=== PATIENT | female | born 1960 | race African-American/Black ===

== ENCOUNTER 2018-07-01 11:40 | Inpatient (IN) | payer MEDICAID ==
[~2018-07-01] VITALS: Ht 157.5 cm; Wt 49.0 kg
--- NOTE | ~2018-07-01 | OP ---
PATIENT NAME: CHRISTY SHAVER MEDICAL RECORD: [id number] :62 LOCATION:D.M2 D.2113 ADMISSION DATE:07/01/18 SURGEON: DERIK NAIDU MD DATE OF OPERATION: 07/02/2018 PREOPERATIVE DIAGNOSES: 1. Clotted left upper extremity AV graft. 2. End-stage renal disease. 3. Hypertension. POSTOPERATIVE DIAGNOSES: 1. Clotted left upper extremity AV graft. 2. End-stage renal disease. 3. Hypertension. PROCEDURES: 1. Attempted left upper extremity AV graft, mechanical thrombectomy. 2. Left upper extremity AV graft fistulogram. 3. Right IJ HemoSplit catheter placement 23 cm. 4. Fluoroscopic interpretation. SURGEON: Derik Naidu MD REPORT OF PROCEDURE: The patient's left upper extremity was prepped and draped in sterile fashion. The patient had a couple of sutures present from previous attempted thrombectomy. When I took these off, there was some bleeding from the most inferior aspect. I went ahead and just opened up the graft over this. The graft was noted to be very pseudoaneurysmal at this point. There was minimal flow coming through. I was able to push through some clot and found an opening in the graft. I attempted to run 4- and 5-Vincentian Ricki catheters proximally and distally and met a lot of resistance. I eventually made another incision on the more anterior aspect of the arm, which correlated with the afferent limb of the graft. I was able to get around the graft at this point. Vessel loops were placed proximally and distally and a small opening was made. We pushed out some clot and then ran the 4 and 5 Ricki catheters proximally and distally. When we did this, there was pulsatile blood flow from the afferent limb. We clamped off the vessel and gave the patient 5000 units of heparin IV. I went back to the original opening and attempted to open up the efferent limb of the vessel to improve the outflow. I was never able to pass the 4 and 5 Ricki. I eventually tried passing a 0.035 Glidewire without success, then inserted a 5-Vincentian sheath and performed a fistulogram on the efferent limb of the graft and there was absolutely no flow coming out of the pseudoaneurysm. At this point, I discontinued any further attempts to declot the graft. The patient already had multiple stents placed throughout the graft. I ended up closing up the 2 openings using interrupted 6-0 Prolenes. We then closed the skin up over top of this using running 5-0 Monocryl. At this point, we prepped the patient's right neck using ultrasound guidance. A needle was used to cannulate the right internal jugular vein and a guidewire was advanced. There was some obstruction present, but we were able to eventually pass an 0.035 Glidewire through. We then made an incision on the patient's right lateral chest and tunneled the catheter between this and the wire exit site. The multiple dilators were placed over the wire under fluoroscopic guidance followed by the final dilator trocar device. The wire and dilator were then removed and the catheter tip was advanced through the trocar. The trocar was then removed and the catheter was backed up until the tips rested at the right atrial superior vena caval OPERATIVE REPORT [id number] [facility]. The catheter aspirated nonpulsatile dark blood and flushed easily with heparinized saline. This was sutured into place with 2-0 Prolenes and the skin incisions were closed with subcutaneous 5-0 Monocryl. COMPLICATIONS: None. CONDITION: Stable. ANESTHESIA: General endotracheal. BLOOD LOSS: 50 mL. TRANSINT:[id number] Voice Confirmation ID: [id number] DOCUMENT ID: [id number] DERIK NAIDU MD at 1714 CC: ADIN PHAM MD [id number] DICTATION DATE: 07/02/[address] RADIO TECHNICIAN: 07/02/18 1210 DIS IN 07/03/18 [facility] [address] [place] [address]
--- NOTE | ~2018-07-01 | HP ---
PATIENT: CHRISTY SHAVER MEDICAL RECORD: [id number] ACCOUNT: [id number] LOCATION:D. D.2113 : 62 ADMISSION DATE: 07/01/18 PCP: MALLORY SANTANA MD HISTORY AND PHYSICAL EXAMINATION HISTORY OF PRESENT ILLNESS: This is a nice 57-year-old patient with ESRD that has a clotted left upper thumb pull graft. Unfortunately, her graft clotted and we were unable to pass a wire in the procedure center to perform mechanical thrombectomy. REVIEW OF SYSTEMS: No nausea, vomiting, diarrhea, chest pain, some pain in her arm. Otherwise, all review of systems are negative. PAST MEDICAL HISTORY: 1. ESRD, on dialysis since December. 2. Hypertension, very elevated. 3. Intellectual disability: 4. Renal cell carcinoma with previous right nephrectomy in 2014. 5. Anemia of renal disease. 6. Secondary hyperparathyroidism. 7. Chronic pain. 8. Insomnia. 9. Emphysema with history of tobacco. 10. GERD. 11. Anxiety. 12. Hyperlipidemia. PAST SURGICAL HISTORY: Nephrectomy on the right in 2014, left upper loop AV graft thumb pull, runs lateral to medial. FAMILY HISTORY: Uncle was on dialysis. Two minimally functional brother. SOCIAL HISTORY: Resides in [facility] in [place], [place]. Uses smokeless tobacco, but has had used recreational drugs and tobacco. ALLERGIES: MINOXIDIL. MEDICATION LIST: We are obtaining from her correction. PHYSICAL EXAMINATION: VITAL SIGNS: She is 210/166, 72 heart rate, 18 respiratory rate. GENERAL: She is alert, but not oriented. HEENT: Grossly clear. CHEST: Regular rhythm. S1 and S2. Left upper clotted graft with multiple pseudoaneurysms, very firm on exam. Lungs are grossly clear except for mild decreased breath sounds. ABDOMEN: Nontender in all 4 quadrants. EXTREMITIES: +2 brachial pulses even and bilateral. SKIN: No urticarial rash. LABORATORY DATA: Lab will be sent. ASSESSMENT AND PLAN: 1. Clotted arteriovenous graft. Her last dialysis was last week. She will need a stat BMP, CBC and INR. HISTORY AND PHYSICAL [id number] CHRISTY SHAVER 2. Clotted arteriovenous graft. This graft is old and does have stents. There is a fracture and stent in the arterial limb. We were unable to pass the wire out of the pseudoaneurysms in the venous limb through the venous anastomosis, it was likely very stenotic. As mentioned, the clots were very firm as well and will likely need AngioJet and surgical mechanical thrombectomy. 3. Anemia of chronic kidney disease. We will check her hematocrit. 4. Chronic obstructive pulmonary disease with history of tobacco use. 5. Anxiety. 6. Hyperlipidemia. 7. Gastroesophageal reflux disease. 8. Hyperphosphatemia. 9. Intellectual disability. 10. Right renal cell carcinoma back in 2015. PLAN: Please see orders. TRANSINT:[id number] Voice Confirmation ID: [id number] DOCUMENT ID: [id number] ADIN PHAM MD at 0702 CC: [id number] DICTATION DATE: 07/01/18 1050 TACKING STITCH REMOVER: 07/01/18 1226 ADM IN [place] [id number] [place] [id number]
[~2018-07-01 11:40] MED LIST: ASPIRIN81 MG PO; ATIVAN0.5 MG PO; BENADRYL25 MG PO; CARDURA2 MG PO; CATAPRES-T1 PATCH.WK TD; CATAPRES0.1 MG PO; COLACE100 MG PO; HYDRALAZINE HC100 MG PO; HYDROCODON-ACE1 EAC9 PO; NIFEDIPINE ER90 MG PO; PERISOL437 ML MM; PHOSLO667 MG PO; PROVENTIL/2.5 MG/3 M INH; REMERON30 MG PO; RENAGEL800 MG PO; SENSIPAR30 MG PO; TEMAZEPAM30 MG PO; TOPROL XL200 MG PO; ZOFRAN4 MG PO
[2018-07-01 12:40] VITALS: BP 228/112; BMI 19.8
[2018-07-01 13:44] LABS: INR 1.26 (0.85-1.17); PROTIME 15.3 SECONDS (11.6-15.0)
[2018-07-01 13:48] LABS: ANION GAP 21.6 mmol/L (8-16); CALCIUM 8.8 mg/dL (8.5-10.1); CARBON DIOXIDE 19.4 mmol/L (21.0-32.0); CREATININE - SERUM 14.2 mg/dL (0.6-1.3)
[2018-07-01 13:54] LABS: HEMATOCRIT 34.6 % (36.0-48.0); HEMOGLOBIN 11.3 g/dL (12-16); MCH 23.8 pg (26.0-34.0); MCHC 32.7 g/dL (31.0-37.0); RBC 4.74 10x6/uL (4.00-5.40); RDW 15.3 % (11.5-14.5); WBC 6.3 10x3/uL (4.8-10.8)
[2018-07-01 14:00] LABS: PLATELET COUNT 114 10x3/uL (130-400)
[2018-07-01 15:15] LABS: EOSINOPHILS 3 % (0-7); LYMPHOCYTES 52 % (15-50); MONOCYTES 3 % (2-11); NEUTROPHILS 42 % (40-80); PLATELET ESTIMATE DECREASED
[2018-07-01 15:56] VITALS: BP 214/91
[2018-07-01 16:35] VITALS: BP 160/94
[2018-07-01 20:00] VITALS: BP 183/94
[2018-07-02 04:00] VITALS: BP 209/99
[2018-07-02 06:07] LABS: BASOPHILS 0.9 % (0-2); HEMATOCRIT 31.2 % (36.0-48.0); HEMOGLOBIN 10.2 g/dL (12-16); IMMATURE GRANULOCYTES 0.2 % (0-5); LYMPHOCYTES 28.6 % (15-50); MCH 23.7 pg (26.0-34.0); MCHC 32.7 g/dL (31.0-37.0); MCV 72.4 fL (80.0-100.0); MONOCYTES 21.3 % (2-11); RBC 4.31 10x6/uL (4.00-5.40); RDW 14.9 % (11.5-14.5)
[2018-07-02 06:22] LABS: ANION GAP 22.4 mmol/L (8-16); CALCIUM 8.1 mg/dL (8.5-10.1); CARBON DIOXIDE 20.3 mmol/L (21.0-32.0); CREATININE - SERUM 15.1 mg/dL (0.6-1.3); PLATELET COUNT 141 10x3/uL (130-400); WBC 4.6 10x3/uL (4.8-10.8)
[2018-07-02 06:25] LABS: POTASSIUM - SERUM 4.7 mmol/L (3.5-5.1)
[2018-07-02 06:27] LABS: INR 1.28 (0.85-1.17); PROTIME 15.5 SECONDS (11.6-15.0)
[2018-07-02 07:57] VITALS: BP 170/96
[2018-07-02 12:58] VITALS: Ht 157.5 cm; Wt 49.0 kg
[2018-07-02 20:00] VITALS: BP 111/78
[2018-07-03 04:00] VITALS: BP 185/85
[2018-07-03 06:48] LABS: BASOPHILS 0.6 % (0-2); EOSINOPHILS 2.8 % (0-7); HEMATOCRIT 29.9 % (36.0-48.0); HEMOGLOBIN 9.8 g/dL (12-16); IMMATURE GRANULOCYTES 0.2 % (0-5); MCH 23.8 pg (26.0-34.0); MCHC 32.8 g/dL (31.0-37.0); MCV 72.7 fL (80.0-100.0); NEUTROPHILS 55.4 % (40-80); PLATELET COUNT 137 10x3/uL (130-400); RBC 4.11 10x6/uL (4.00-5.40); RDW 15.1 % (11.5-14.5); WBC 5.4 10x3/uL (4.8-10.8)
[2018-07-03 07:18] LABS: ANION GAP 15.6 mmol/L (8-16); CALCIUM 9.1 mg/dL (8.5-10.1); CARBON DIOXIDE 25.1 mmol/L (21.0-32.0); PHOSPHOROUS 6.4 mg/dL (2.5-4.9)
[2018-07-03 07:19] LABS: CREATININE - SERUM 10.4 mg/dL (0.6-1.3)
[2018-07-03 07:20] LABS: POTASSIUM - SERUM 3.7 mmol/L (3.5-5.1)
[2018-07-03 08:05] VITALS: BP 139/62
[2018-07-04 08:19] LABS: HEP B CORE AB TOTAL Negative (Negative); HEPATITIS C ANTIBODY <0.1 (0.0-0.9)
[2018-07-06 07:10] LABS: HEPATITIS BE ANTIGEN Negative (Negative)
== END 2018-07-03 16:10 | DRG 252 ==
LOC: D.M2 11:40 → D.SDCHOLD 07-02 19:24 → D.M2 07-02 19:26
PROVIDERS: Internal Medicine Nephrology; Surgery
PROC: 02HV33Z Insertion of Infusion Device into Superior Vena Cava, Percutaneous Approach (ICD-10-PCS; 2018-07-02)
PROC: B5181ZA Fluoroscopy of Superior Vena Cava using Low Osmolar Contrast, Guidance (ICD-10-PCS; 2018-07-02)
PROC: 5A1D70Z Performance of Urinary Filtration, Intermittent, Less than 6 Hours Per Day (ICD-10-PCS; 2018-07-02)
PROC: 03C63ZZ Extirpation of Matter from Left Axillary Artery, Percutaneous Approach (ICD-10-PCS; principal; 2018-07-02 09:30)
PROC: B51W1ZZ Fluoroscopy of Dialysis Shunt/Fistula using Low Osmolar Contrast (ICD-10-PCS; 2018-07-02 09:30)
PROC: 0JH63XZ Insertion of Tunneled Vascular Access Device into Chest Subcutaneous Tissue and Fascia, Percutaneous Approach (ICD-10-PCS; 2018-07-02 09:30)
DX: T82.868A Thrombosis due to vascular prosthetic devices, implants and grafts, initial encounter (principal); N18.6 End stage renal disease; I12.0 Hypertensive chronic kidney disease with stage 5 chronic kidney disease or end stage renal disease; N25.81 Secondary hyperparathyroidism of renal origin; Y83.8 Other surgical procedures as the cause of abnormal reaction of the patient, or of later complication, without mention of misadventure at the time of the procedure; Z99.2 Dependence on renal dialysis; F79 Unspecified intellectual disabilities; D63.1 Anemia in chronic kidney disease; J44.9 Chronic obstructive pulmonary disease, unspecified; G47.00 Insomnia, unspecified; K21.9 Gastro-esophageal reflux disease without esophagitis; F41.9 Anxiety disorder, unspecified; E78.5 Hyperlipidemia, unspecified; E87.5 Hyperkalemia; Z72.0 Tobacco use

== ENCOUNTER → 2018-10-16 13:17 | Outpatient (CLI) | payer MEDICAID ==
[2018-07-02 12:58] VITALS: BMI 19.7
== END | disposition home or self-care (01) ==
LOC: D.CT 13:17
DX: N18.5 Chronic kidney disease, stage 5 (principal)

== ENCOUNTER 2018-12-23 09:42 | Outpatient (CLI) | payer MEDICAID ==
[~2018-12-23] VITALS: Ht 157.5 cm; Wt 50.9 kg
--- NOTE | ~2018-12-23 | HEMODYNAMI ---
PATIENT:CHRISTY SHAVER MEDICAL RECORD: [id number] : 62 LOCATION:D.SP ADMISSION DATE: 12/23/18 Generatedon:12/23/201816:36 Patient name: CHRISTY SHAVER Patient #: [id number] SSN: DO B: 1960 Date of study: 12/23/2018 Page: Of Hemodynamic Procedure Report Patient Data Patient Demographics Procedure consent was obtained First Name: CHRISTY Gender: Female Last Name: CHHAYA : 1960 Patient #: [id number] Age: 58 year(s) Race: Black Additional ID: [id number] Contact details [address]: [address] [place] [address] State: [place] City: [place] Zip code: [address] Admission Admission Data Admission Date: 12/23/2018 Admission Time: 9:42 Procedure Procedure Types Cath Procedure Peripheral Cath Diagnostic Procedure 4-Vessel Subclavian Arteriogram Uni Procedure Description Procedure Date Procedure Date: 12/23/2018 Procedure Start Time: 13:38 Procedure Staff Name Function Raymond Sher RT Monitor Donald Childers SERVICE CENTER REPRESENTATIVE Additional personnel Alvarado Sheehan MD Performing Physician Lilli Shankar RN Nurse Procedure Data Cath Procedure Fluoroscopy Diagnostic fluoroscopy Total fluoroscopy Time: 27 time: 27 min min Diagnostic fluoroscopy Total fluoroscopy dose: 854 dose: 854 mGy mGy Contrast Material Contrast Material Type Amount (ml) Isovue 300 130 Diagnostic catheters Device Type Used For End Catheter Placement Merit ULTRA BOLUS FLUSH 5Fr 90CM catheter ([id number]) Merit Impress Phillip 5FR. 100CM catheter ([id number]) Merit Impress KA 2 5Fr 40CM catheter ([id number]) Procedure Medications Medication Administration Route Dosage Heparin Flush Bag added to field 3 bags (1000units/500ml NS) Lidocaine 1% added to field 20 Heparin Bolus I.V. 3000 units Heparin Bolus I.V. 1500 units Heparin Bolus I.V. 1500 units Hemodynamics Rest Heart Rate: 55 (bpm) Pressure Samples Time Site Value (mmHg) Purpose Heart Use Rate(bpm) 14:01 AO 109/43(67) Snapshot 65 14:02 AO 117/55(78) Snapshot 76 Snapshots Pre Cath Intra NCS Post Cath Vital Signs Time Heart Resp SPO2 etCO2 NIBP (mmHg) Rhythm Pain Sedation Rate (ipm) (%) (mmHg) Status Level (bpm) 13:23:37 65 12 96 25.7 Measuring NSR 0 (11) 10(A) , No pain 13:25:01 65 18 15.8 Time NSR 0 (11) 10(A) Exceeded , No pain 13:29:07 63 13 24.2 176/93(123) NSR 0 (11) 10(A) , No pain 13:33:16 66 13 100 23.4 183/85(122) NSR 0 (11) 10(A) , No pain 13:37:33 64 12 25.6 171/87(128) NSR 0 (11) 10(A) , No pain 13:41:46 65 9 28.7 167/86(112) NSR 0 (11) 10(A) , No pain 13:46:45 56 12 0 Measuring NSR 0 (11) 10(A) , No pain 13:48:09 65 35 21.9 Time NSR 0 (11) 10(A) Exceeded , No pain 13:51:51 96 11 94 30.9 132/82(98) NSR 0 (11) 10(A) , No pain 13:56:50 72 10 97 37 Measuring NSR 0 (11) 10(A) , No pain 13:58:11 69 9 98 35.5 Time NSR 0 (11) 10(A) Exceeded , No pain 14:02:05 65 12 100 32.4 Time NSR 0 (11) 10(A) Exceeded , No pain 14:07:04 65 7 100 33.2 Measuring NSR 0 (11) 10(A) , No pain 14:08:28 65 7 100 33.2 Time NSR 0 (11) 10(A) Exceeded , No pain 14:12:24 64 11 100 31.7 Disturbed NSR 0 (11) 10(A) , No pain 14:15:14 65 10 100 31.7 No Cuff NSR 0 (11) 10(A) , No pain 14:19:01 65 9 100 30.9 No Cuff NSR 0 (11) 10(A) , No pain 14:21:20 65 10 100 29.4 No Cuff NSR 0 (11) 10(A) , No pain 14:25:20 66 11 100 30.1 No Cuff NSR 0 (11) 10(A) , No pain 14:25:44 66 8 100 27.9 Aborted NSR 0 (11) 10(A) , No pain 14:29:44 68 9 100 31.6 No Cuff NSR 0 (11) 10(A) , No pain 14:33:15 68 12 100 30.2 Aborted NSR 0 (11) 10(A) , No pain 14:37:07 69 10 100 31.6 Aborted NSR 0 (11) 10(A) , No pain 14:40:42 67 12 100 30.2 Aborted NSR 0 (11) 10(A) , No pain 14:44:13 67 10 100 30.9 Aborted NSR 0 (11) 10(A) , No pain 14:48:12 68 10 100 31.7 No Cuff NSR 0 (11) 10(A) , No pain 14:52:12 70 15 100 27.9 No Cuff NSR 0 (11) 10(A) , No pain 14:56:12 72 11 100 28.6 No Cuff NSR 0 (11) 10(A) , No pain 15:00:11 72 13 100 33.2 No Cuff NSR 0 (11) 10(A) , No pain 15:04:11 72 14 100 30.9 No Cuff NSR 0 (11) 10(A) , No pain 15:08:11 72 11 100 36.2 No Cuff NSR 0 (11) 10(A) , No pain 15:12:10 73 14 100 35.4 No Cuff NSR 0 (11) 10(A) , No pain 15:16:10 73 13 100 33.9 No Cuff NSR 0 (11) 10(A) , No pain 15:20:10 72 11 100 24.8 No Cuff NSR 0 (11) 10(A) , No pain 15:24:09 71 19 100 33.1 No Cuff NSR 0 (11) 10(A) , No pain Medications Time Medication Route Dose Verified Delivered Reason Notes Effe ctiveness by by 13:39:03 Heparin Flush added 3 Alvarado Childers used for Bag to bags Sissy Sheehan procedure (1000units/500ml field MD ROWE NS) 13:39:24 Lidocaine 1% added 20ml Alvarado Childers for local to vial Sissy Sheehan anesthetic field MD ROWE 13:55:25 Heparin Bolus I.V. 3000 Alvarado Mcpherson Per units Sissy Shankar RN physician 14:24:12 Heparin Bolus I.V. 1500 Alvarado Vida Per units Sissy Shankar RN physician 15:02:24 Heparin Bolus I.V. 1500 Alvarado Vida Per units Sissy Shankar RN physician Procedure Log Time Note 13:08:26 Donald Childers SERVICE CENTER REPRESENTATIVE present and monitoring patient for TIVA. 13:08:36 Raymond Olivarez RT (R) (CV) sent for patient. Start room use. 13:08:43 Time tracking: Regular hours (M-F 7:00 - 5:00) 13:08:49 Plan of Care:Hemodynamics will remain stable., Cardiac rhythm will remain stable., Comfort level will be maintained., Respiratory function will remain adequate., Patient/ family verbilizes understanding of procedure., Procedure tolerated without complication., Recovers from procedure without complications.. 13:08:52 Use device set IR Diagnostic 13:08:54 ACIST Manifold (71486) opened to sterile field. 13:08:54 ACIST Hand Control (97894) opened to sterile field. 13:08:54 ACIST Syringe (40537) opened to sterile field. 13:08:55 Tegaderm 4 x 4 (1626W) opened to sterile field. 13:08:55 Sterile Angiographic Pack opened to sterile field. 13:08:55 Bag Decanter (2002S) opened to sterile field. 13:09:03 Patient received from Outpatients to IR Alert and oriented. Tansferred to table in Supine position. 13:09:04 Correct patient and procedure confirmed by team. 13:09:06 Signed procedure consent form obtained from patient. 13:09:09 Full Disclosure recording started 13:09:09 - 13:09:13 H&P Date Dictated: 12/23/2018 H&P Addendum completed by physician on day of procedure. (MUST COMPLETE FOR ALL OUTPATIENTS). 13:09:17 ECG and BP/O2 sat monitors applied to patient. 13:09:19 Pre-op teaching completed and patient verbalized understanding. 13:09:19 Pre-procedure instructions explained to patient. 13:09:21 - 13:09:34 SEE ANESTHESIA NOTE FOR PRE PROCEDURE TIVA 13:09:37 - 13:09:45 Right groin area was prepped with chlora-prep and draped in sterile fashion 13:09:46 Alarms reviewed by R. N. 13:09:47 Sharps counted by scrub and verified by R.N. 13:18:49 Pre procedure: right dorsailis pedis pulse Doppler 13:21:48 Vital chart was started 13:21:49 Baseline sample Acquired. 13:37:41 --------ALL STOP TIME OUT------ 13:37:41 Physician arrived 13:37:42 Final Timeout: patient, procedure, and site verified with staff and physician. All members of the team are in agreement. 13:37:44 Right groin site verified by team. 13:37:51 Fire Safety Assessment: A--An alcohol-based skin anteseptic being used preoperatively., C--Open oxygen or nitrous oxide is being used. 13:37:54 Sedation plan: TIVA Medication:Propofol 13:38:05 Procedure started. 13:38:13 Local anesthetic to right femoral artery with Lidocaine 1% by Alvarado Sheehan MD.INITIAL ACCESS ONLY 13:38:30 TUBING Contrast Injection High Pressure (NYT821Y) opened to sterile field. 13:38:30 BENTSON 145cm wire (R95990) opened to sterile field. 13:38:31 Micropuncture VSI 4FR kit opened to sterile field. 13:38:33 SHEATH 5FR Kendall (KVA004) opened to sterile field. 13:38:35 A Wedding Reality ULTRA BOLUS FLUSH 5Fr 90CM catheter ([id number]) was advanced over the wire and used for . 13:38:40 A Wedding Reality Impress Phillip 5FR. 100CM catheter ([id number]) was advanced over the wire and used for . 13:39:03 Heparin Flush Bag (1000units/500ml NS) 3 bags added to field was administered by Alvarado Sheehan MD; used for procedure; 13:39:24 Lidocaine 1% 20ml vial added to field was administered by Alvarado brunson MD; for local anesthetic; 13:48:51 A Wedding Reality Impress KA 2 5Fr 40CM catheter ([id number]) was advanced over the wire and used for . 13:48:55 ROADRUNNER .035 145 glide wire (R90677) opened to sterile field. 13:50:45 ROADRUNNER .035 260 glide wire (W19402) opened to sterile field. 13:55:16 DUNCAN 260 wire (Y08628) opened to sterile field. 13:55:17 INFLATOR BasixTOUCH (UD5741) opened to sterile field. 13:55:25 Heparin Bolus 3000 units I.V. was administered by Vida Shankar RN; Per physician; 13:56:39 Inflate balloon Inflation number: 1 A Evercross 4 x 100 x 135 Balloon ([id number]) was prepped and advanced across the Undefined1, then inflated to 10 REAGAN for 0:00 (min:sec). 14:01:09 Zero performed for pressure channel P1 14:04:17 COOK SHEATH 6FR RAABE 70CM (D40878) opened to sterile field. 14:07:41 AMPLATZ Super stiff Straight 260cm wire ([id number]) opened to sterile field. 14:24:12 Heparin Bolus 1500 units I.V. was administered by Vida Shankar RN; Per physician; 14:25:28 CXI Catheter 90cm (F95361) opened to sterile field. 14:45:54 Inflate balloon Inflation number: 1 A Evercross 3 x 4 x 135 Balloon ([id number]) was prepped and advanced across the Proximal Subclavian, Right, then inflated 14:49:25 Place stent Inflation Number: 2 A Visipro 8 x 27 x 135 Stent ([id number]) was prepped and advanced across the Proximal Subclavian, Right. The stent was deployed at 0 REAGAN for 0:00 (min:sec). 14:56:42 SHEATH 6FR Kendall (SID119) opened to sterile field. 14:58:03 GLIDE WIRE MERIT Angled 260cm ([id number]) opened to sterile field. 15:02:24 Heparin Bolus 1500 units I.V. was administered by Vida Shankar RN; Per physician; 15:05:19 Place stent Inflation Number: 1 A Visipro 8 x 17 x 135 Stent ([id number]) was prepped and advanced across the Proximal Subclavian, Left. The stent was deployed at 0 REAGAN for 0:00 (min:sec). 15:14:22 EVERFLEX 7 x 40 Stent ([id number]) was deployed across Undefined1 . 15:15:06 Inflate balloon Inflation number: 2 A Evercross 7 x 4 x 135 Balloon ([id number]) was prepped and advanced across the Undefined1, then inflated to 0 REAGAN for 0:00 (min:sec). 15:21:01 EXOSEAL 6Fr (EX600) opened to sterile field. 15:21:15 Procedure ended.(Physican Out) 15:21:37 Fluoroscopy time 27.00 minutes. 15:21:52 Fluoroscopy dose: 854 mGy 15:21:52 Flurop Dose total: 854 15:21:55 Sharps counted by scrub and verified by R.N. 15:21:57 Insertion/operative site no bleeding no hematoma. 15:22:00 Post-op/insertion site Right Femoral artery dressed using a 4 x 4 and Tegaderm. 15:22:04 Post right femoral artery:stable 15:22:05 Post Procedure Pulses reassessed and unchanged 15:22:15 Procedure and supply charges have been captured, reviewed, submitted an d are correct. 15:23:56 Vital chart was stopped 15:42:13 Contrast amount:Isovue 300 130ml. 15:44:55 Report given to Outpatients. 15:44:58 Patient transfered to Outpatients with Stretcher. 15:45:39 Full Disclosure recording stopped Intervention Summary Intervention Notes Time ActionType Lesion and Equipment Used Action# Pressure Duration Attributes 13:56:39 Inflate Undefined1 Evercross 4 x 100 1 10 00:00 balloon x 135 Balloon ([id number]) 14:45:54 Inflate Proximal Evercross 3 x 4 x 1 10 00:27 balloon Subclavian, 135 Balloon Right ([id number]) 14:49:25 Place stent Proximal Visipro 8 x 27 x 2 0 00:00 Subclavian, 135 Stent Right ([id number]) 15:05:19 Place stent Proximal Visipro 8 x 17 x 1 0 00:00 Subclavian, 135 Stent Left ([id number]) 15:14:22 Deploy self Undefined1 EVERFLEX 7 x 40 1 expanding Stent stent ([id number]) 15:15:06 Inflate Undefined1 Evercross 7 x 4 x 2 0 00:00 balloon 135 Balloon ([id number]) Device Usage Item Name Manufacture Quantity Catalog Number Hospital Part Curr ent Minimal Lot# / Charge Number Stock Stock Serial# Code ACIST Syringe Acist 1 38414 345384 899818 3616 92 20 (24504) Medical Systems Inc ACIST Hand Acist 1 13612 018654 985215 3415 17 5 Control (73531) [employer] Inc ACIST Manifold Acist 1 97880 855812 502641 5409 34 5 (99744) Medical Systems Inc Bag Decanter Microtek 1 2001S 609047 45714 9875 48 5 (2001S) Medical Inc. Sterile Cardinal 1 [id number] 684748 8966 31 5 Angiographic Pack Health Tegaderm 4 x 4 3M 1 1626W 755554 102526 8244 20 5 (1626W) BENTSON 145cm Cook Medical 1 W61026 555560 0551 92 5 wire (J76258) TUBING Contrast Merit 1 [id number] 870754 483448 4598 61 5 Injection High Medical Pressure (ZEH694O) Micropuncture VSI VSI VASCULAR 1 7266V 041352 8751 57 5 4FR kit SOLUTIONS SHEATH 5FR Terumo 1 IXC742 914773 183541 4256 44 5 Kendall (GFD783) Merit ULTRA BOLUS Merit 1 [id number] 744605 3469 32 5 FLUSH 5Fr 90CM Medical catheter ([id number]) Merit Impress Merit 1 [id number] 747132 7592 74 5 Phillip 5FR. Medical 100CM catheter ([id number]) Merit Impress KA Merit 1 [id number] 361948 6881 14 5 2 5Fr 40CM Medical catheter (22768HN6) ROADRUNNER .035 Cook Medical 1 J76266 135525 076615 6840 72 5 1939337 145 glide wire (U20073) ROADRUNNER .035 Cook Medical 1 A96934 184982 443673 0645 25 5 [id number] 260 glide wire (R40015) DUNCAN 260 wire Cook Medical 1 E26395 077620 45513 9996 09 5 (F45346) INFLATOR Merit 1 UQ4851 537630 698636 9819 99 5 BasCoWare Medical (KH2068) Evercross 4 x 100 Medtronic 1 [id number] 752967 493461 1997 94 5 M341420 x 135 Balloon ([id number]) COOK SHEATH 6FR Cook Medical 1 K19696 174821 00612 9999 97 1 2846517 RAABE 70CM (A21607) AMPLATZ Super Almyra 1 [id number] 561826 67458 9999 69 5 [id number] stiff Straight Scientific 260cm wire ([id number]) CXI Catheter 90cm Cook Medical 1 T51041 504063 433188 6509 23 5 [id number] (Q89156) Evercross 3 x 4 x Medtronic 1 [id number] 416644 390222 1298 93 5 [id number] 135 Balloon ([id number]) Visipro 8 x 27 x Medtronic 1 QAD50-70-51-530 513050 745618 9544 98 5 [id number] 135 Stent (NYW98-80-06-232) SHEATH 6FR Terumo 1 OTR340 740315 972609 4159 10 40 Kendall (VOA617) GLIDE WIRE MERIT Merit 1 [id number] 786474 619348 8925 69 5 Angled 260cm Medical ([id number]) Visipro 8 x 17 x Medtronic 1 UEG47-48-90-494 815098 142046 7655 97 5 H147183 135 Stent (JIZ39-73-09-610) EVERFLEX 7 x 40 Medtronic 1 XNQ15-59-830-443 258991 541058 4516 97 5 Q585328 Stent [id number] ([id number]) Evercross 7 x 4 x Medtronic 1 [id number] 277646 129850 0522 96 5 [id number] 135 Balloon ([id number]) EXOSEAL 6Fr Cardinal 1 EX600 392395 707224 3710 33 10 [id number] (EX600) Health Signature Audit Vina Stage Time Signature Unsigned Intra-Procedure 12/23/2018 Raymond Olivarez RT 3:45:28 PM [place] RT (R) (CV) 12/23/2018 (R) (CV) 4:36:01 PM Intra-Procedure 12/23/2018 Raymond 4:36:52 PM Leticiaield RT (R) (CV) Signatures Monitor : Raymond Signature : Sher RT Date : Time : [facility] [address] [place] [address]
[2018-12-23 10:17] LABS: APTT 34.3 SECONDS (22.8-39.4); INR 1.29 (0.85-1.17); PROTIME 15.5 SECONDS (11.6-15.0)
[2018-12-23 10:23] LABS: ANION GAP 17.2 mmol/L (8-16); CALCIUM 8.4 mg/dL (8.5-10.1); CARBON DIOXIDE 20.9 mmol/L (21.0-32.0); CREATININE - SERUM 6.4 mg/dL (0.6-1.3); POTASSIUM - SERUM 4.1 mmol/L (3.5-5.1)
[2018-12-23 10:31] LABS: BASOPHILS 1.5 % (0-2); EOSINOPHILS 9.1 % (0-7); HEMATOCRIT 35.1 % (36.0-48.0); HEMOGLOBIN 11.3 g/dL (12-16); IMMATURE GRANULOCYTES 0.2 % (0-5); LYMPHOCYTES 38.1 % (15-50); MCH 23.8 pg (26.0-34.0); MCHC 32.2 g/dL (31.0-37.0); MCV 73.9 fL (80.0-100.0); MONOCYTES 15.3 % (2-11); NEUTROPHILS 35.8 % (40-80); PLATELET COUNT 116 10x3/uL (130-400); RBC 4.75 10x6/uL (4.00-5.40); RDW 16.3 % (11.5-14.5); WBC 4.5 10x3/uL (4.8-10.8)
[2018-12-23] MEDS ORDERED: MOBIC7.5 MG PO (10:49)
[2018-12-23] MEDS ORDERED: MELATONIN10 M1 (10:49)
[2018-12-23] MEDS ORDERED: GABAPENTIN100 MG PO ×2 (10:51)
[2018-12-23] MEDS ORDERED: REMERON15 MG PO (10:52)
[2018-12-23 11:21] VITALS: BP 136/92; Ht 157.5 cm; Wt 50.9 kg
--- NOTE | 2018-12-23 17:00 | NUR ---
PT HAS COUSIN AND CHECK AIRMAN AT BEDSIDE. SIDE RAILS UP. RIGHT IS STRAIGHT. WILL CONTINUE TO MONITOR.
--- NOTE | 2018-12-23 17:00 | NUR ---
PT IS ASLEEP AT THIS TIME
== END 2018-12-23 19:50 | disposition home or self-care (01) ==
LOC: D.SP 09:42 → D.RAD 12:00 → D.SP 12:00
PROVIDERS: ATTEND Radiology Diagnostic Radiology
DX: T82.858A Stenosis of other vascular prosthetic devices, implants and grafts, initial encounter (principal); N18.6 End stage renal disease; Z99.2 Dependence on renal dialysis; I77.1 Stricture of artery; I70.291 Other atherosclerosis of native arteries of extremities, right leg; I12.0 Hypertensive chronic kidney disease with stage 5 chronic kidney disease or end stage renal disease; D64.9 Anemia, unspecified; N25.81 Secondary hyperparathyroidism of renal origin; G89.29 Other chronic pain; G47.00 Insomnia, unspecified; K21.9 Gastro-esophageal reflux disease without esophagitis; F41.9 Anxiety disorder, unspecified; E78.5 Hyperlipidemia, unspecified; Z87.891 Personal history of nicotine dependence; Z88.8 Allergy status to other drugs, medicaments and biological substances; Z79.82 Long term (current) use of aspirin; Z79.52 Long term (current) use of systemic steroids; Z79.891 Long term (current) use of opiate analgesic; Z79.899 Other long term (current) drug therapy

== ENCOUNTER 2019-03-03 09:08 | Day surgery (SDC) | payer MEDICAID ==
[~2019-03-03] VITALS: Ht 162.6 cm; Wt 42.6 kg
[~2019-03-03 09:08] MED LIST changes: +GABAPENTIN100 MG PO; +MELATONIN10 M1; +MOBIC7.5 MG PO; +REMERON15 MG PO
[2019-03-03 10:09] LABS: BASOPHILS 1.4 % (0-2); HEMATOCRIT 33.5 % (36.0-48.0); HEMOGLOBIN 11.1 g/dL (12-16); IMMATURE GRANULOCYTES 0.2 % (0-5); LYMPHOCYTES 31.8 % (15-50); MCH 24.2 pg (26.0-34.0); MCHC 33.1 g/dL (31.0-37.0); MCV 73.1 fL (80.0-100.0); MONOCYTES 12.6 % (2-11); RBC 4.58 10x6/uL (4.00-5.40); RDW 20.6 % (11.5-14.5); WBC 4.8 10x3/uL (4.8-10.8)
[2019-03-03 10:10] LABS: PLATELET COUNT 209 10x3/uL (130-400)
[2019-03-03 10:18] LABS: ANION GAP 16.9 mmol/L (8-16); CALCIUM 9.5 mg/dL (8.5-10.1); CARBON DIOXIDE 22.3 mmol/L (21.0-32.0); CREATININE - SERUM 5.4 mg/dL (0.6-1.3); POTASSIUM - SERUM 3.2 mmol/L (3.5-5.1)
[2019-03-03] MEDS ORDERED: ATARAX 25 MG TA25 MG PO (10:42)
[2019-03-03] MEDS ORDERED: PLAVIX75 MG PO (10:42)
[2019-03-03] MEDS ORDERED: TYLENOL W/CODEI1 TAB PO (10:46)
[2019-03-03 10:53] VITALS: Ht 162.6 cm; Wt 42.6 kg
--- NOTE | 2019-03-03 11:03 | NUR ---
SPOKE WITH JAY FERRARI RN AT THE [facility].
[2019-03-03 11:05] LABS: INR 1.08 (0.85-1.17); PROTIME 13.9 SECONDS (11.6-15.0)
--- NOTE | 2019-03-03 18:31 | NUR ---
1814 PORT TO RIGHT UPPER CHEST FLUSHED WITH HEPARIN PER POLICY.PT SLEEPY BUT ARROSABLE TO VERBAL STIMULI. ABLE TO STAND. OCCASIONAL DRY HEAVES WHEN PT MOVED. NOT TAKING ANY ICE CHIPS OR FLUIDS OR FOOD. OFFERED SEVERAL TIMES. FAMILY MEMEBER CONCERNED ABOUT GETTING BACK HOME, SHE HAS A [address], LEFT ARM ELEVATED IN CAR ON PILLOW AND STRAIGHT. INSTRUCTED NOT TO USE THAT ARM TO LIFT ANYTHING. INSTRUCTIONS GIVEN BY DR REDD TO FAMILY.
--- NOTE | 2019-03-10 21:54 | OP ---
PATIENT NAME: CHRISTY SHIN MEDICAL RECORD: [id number] :62 LOCATION:[facility] ADMISSION DATE: SURGEON: ARTEM REDD MD DATE OF OPERATION: 03/03/2019 PREOPERATIVE DIAGNOSES: End-stage renal disease, dependence on hemodialysis. Thrombosed AV graft. Thrombophilia. POSTOPERATIVE DIAGNOSES: End-stage renal disease, dependence on hemodialysis. Thrombosed AV graft. Thrombophilia. OPERATIONS PERFORMED: Implantation of an Artegraft axillary artery to axillary vein loop AV graft in the left upper extremity with Meredith banding to reduce flow in the AV graft due to concerns for steal syndrome. SURGEON: Artem Redd MD ANESTHESIA: General per ROLLING CHAIR PUSHER with LMA. REFERRING PHYSICIANS: 1. Dr. Samy Steiner in [place]. 2. Dr. Jose Eduardo Apodaca in [place] PREOPERATIVE NOTE: Ms. Shin is a 58-year-old female from [place], [place], fdc resident. She is on chronic hemodialysis and has had several prior prosthetic grafts in both upper extremities. She at present is dependent on a right internal jugular tunneled dialysis catheter. She was referred to me for further evaluation for new access. After CT scanning, I found that she had bilateral proximal subclavian stenoses which had been dilated and stented by interventional radiology. Sometime after that, she suffered a stroke and was hospitalized and kept in rehab for a couple of weeks. I have no details about that episode of care. She is thought now to have patent deep venous system and patent thoracic veins and at least open subclavian and axillary arteries and is brought to the hospital as an outpatient to the operating room for implantation of a new graft in her left upper extremity. I plan to do an axillary-axillary loop and simply go around and proximal to the old one. DESCRIPTION OF PROCEDURE: Under general anesthesia, in supine position, the patient was prepped and draped in sterile manner. I examined her first with ultrasound and found she had an acceptable axillary vein and artery for use today. A transverse axillary incision was made and these vessels were exposed and controlled with Silastic loops. I chose a standard Artegraft prosthesis. One was rinsed and prepared. Then, one end was beveled. The artery was occluded. It was opened and flushed proximally and distally with heparinized saline. End of Artegraft to side of artery anastomosis performed with running 6-0 Prolene. The graft and anastomosis were then flushed with heparinized saline and with release of the occluding loops on the artery, the suture line was hemostatic. The graft was clamped and then placed in a very superficial subcutaneous tunnel, which passed around the previous graft. One counterincision just above the antecubital space was required. The graft was then shortened and beveled. The vein was occluded and venotomy was made and the graft was then sutured to the vein, end of graft to side of vein, with running 6-0 Prolene. All lumens were flushed first with heparinized saline, and when the suture line was complete and the occluding clamps and loops were released, excellent flow developed immediately within the graft and the suture lines were OPERATIVE REPORT [id number] CHRISTY SHIN both hemostatic. I examined the patient with continuous wave handheld Doppler and found that, with the graft open, there was almost no flow detectable with Doppler in the distal brachial artery or at the wrist. I therefore performed a Meredith banding-type procedure, applying two 2-0 Prolene ligatures around the graft, just beyond the arterial anastomosis, and tied over an inflated 5-mm diameter angioplasty balloon. This resulted in somewhat diminished flow within the graft and rather marked improvement in the brachial artery flow. Some Fibrillar was necessary for hemostasis in the axilla. The wounds were infiltrated and irrigated with 0.25% Marcaine without epinephrine. Wound closure was performed without the use of a drain with interrupted inverted 3-0 Vicryl and running intracuticular Stratafix. The wounds were further sealed and glued with Dermabond and dressed with Maxorb Ag, Tegaderm, and Cavilon skin prep. The patient was then awakened and taken to the recovery room. Blood loss during the operation was trivial and unreplaced. Sponges, instruments, and needles were accounted for. No drain was used. No surgical specimen was submitted for histopathology. Because of my concern for this patient developing early steal syndrome, I will keep her in overnight observation. She will be reevaluated tomorrow and hopefully she will be able to be discharged to home tomorrow or the next day. We will possibly need to dialyze her here in the morning before she can be discharged. I will consult nephrology to help with her care and treatment while she is with us. After discharge, I will be having her back to see me in my office in approximately 10 days and I expect that, assuming all else goes well, the new Artegraft in the left arm should be usable for dialysis access in 2 weeks. TRANSINT:[id number] Voice Confirmation ID: [id number] DOCUMENT ID: [id number] CC: Dr. Jose Eduardo Apodaca Dr. Samy Steiner ARTEM REDD MD at 2977 CC: DR. SAMY STEINER and DR. JOSE EDUARDO APODACA [phone] DICTATION DATE: 03/03/19 1613 MANNEQUIN COLORING ARTIST: 03/03/19 1746 [facility] 03/03/19 [place] [id number] [place] [id number]
== END 2019-03-03 18:30 | disposition home or self-care (01) ==
LOC: D.OPS 09:08 → D.M2 09:08 → D.OPS 16:19 → D.M2 16:19 → D.OPS 18:30
PROVIDERS: ATTEND Surgery
DX: T82.868A Thrombosis due to vascular prosthetic devices, implants and grafts, initial encounter (principal); N18.6 End stage renal disease; Z99.2 Dependence on renal dialysis; D68.59 Other primary thrombophilia; Z01.812 Encounter for preprocedural laboratory examination

== ENCOUNTER 2020-06-21 11:00 | Day surgery (SDC) | payer MEDICAID ==
[~2020-06-21] VITALS: Ht 162.6 cm; Wt 45.5 kg
[~2020-06-21 11:00] MED LIST changes: +ATARAX 25 MG TA25 MG PO; -NIFEDIPINE ER90 MG PO; +PLAVIX75 MG PO; +PROCARDIA XL60 MG PO; +TYLENOL W/CODEI1 TAB PO
[2020-06-21 11:35] LABS: BASOPHILS 0.2 % (0-2); EOSINOPHILS 0.4 % (0-7); HEMATOCRIT 28.9 % (36.0-48.0); HEMOGLOBIN 9.3 g/dL (12-16); IMMATURE GRANULOCYTES 0.1 % (0-5); LYMPHOCYTES 7.4 % (15-50); MCH 24.3 pg (26.0-34.0); MCHC 32.2 g/dL (31.0-37.0); MCV 75.5 fL (80.0-100.0); MEAN PLATELET VOLUME 10.3 fL (7.4-10.4); MONOCYTES 9.1 % (2-11); NEUTROPHILS 82.8 % (40-80); PLATELET COUNT 228 10x3/uL (130-400); RBC 3.83 10x6/uL (4.00-5.40); RDW 16.1 % (11.5-14.5); WBC 9.9 10x3/uL (4.8-10.8)
[2020-06-21 11:44] LABS: ANION GAP 15.7 mmol/L (8-16); CALCIUM 8.4 mg/dL (8.5-10.1); CARBON DIOXIDE 21.8 mmol/L (21.0-32.0); CREATININE - SERUM 6.5 mg/dL (0.6-1.3); POTASSIUM - SERUM 3.5 mmol/L (3.5-5.1)
[2020-06-21 12:03] LABS: INR 1.87 (0.85-1.17); PROTIME 21.3 SECONDS (11.6-15.0)
[2020-06-21 12:04] LABS: APTT 39.4 SECONDS (22.8-39.4)
[2020-06-21 12:08] VITALS: Ht 162.6 cm; Wt 45.5 kg
[2020-06-21] MEDS ORDERED: BAYER CHEWABLE81 MG PO (12:31)
[2020-06-21] MEDS ORDERED: CLARITIN 10 MG10 MG PO (12:51)
[2020-06-21] MEDS ORDERED: GABAPENTIN100 MG PO (12:53)
[2020-06-21] MEDS ORDERED: EMLA CREAM 30 G30 G1 TOPICAL (12:57)
[2020-06-21] MEDS ORDERED: HYDRALAZINE HCL25 MG PO (12:59)
[2020-06-21] MEDS ORDERED: CHRONULAC30 ML PO (13:00)
[2020-06-21] MEDS ORDERED: LIPITOR20 MG PO (13:01)
[2020-06-21] MEDS ORDERED: TOPROL XL200 MG PO (13:02)
[2020-06-21] MEDS ORDERED: MULTI-DAY VITAM1 TAB PO (13:03)
[2020-06-21] MEDS ORDERED: MYLANTA / MAALO30 ML PO (13:04)
[2020-06-21] MEDS ORDERED: NITROQUICK0.4 MG SL (13:06)
[2020-06-21] MEDS ORDERED: PAMELOR 25 MG C25 MG PO (13:07)
[2020-06-21] MEDS ORDERED: FAMOTIDINE10 MG PO (13:07)
[2020-06-21] MEDS ORDERED: PHOSLO667 MG PO (13:09)
[2020-06-21] MEDS ORDERED: RENVELA800 MG PO (13:11)
[2020-06-21] MEDS ORDERED: ACETAMINOPHEN325 MG PO (13:12)
--- NOTE | 2020-06-21 14:20 | NUR ---
PATIENT BROUGHT BACK TO OUTPATIENT DEPARTMENT FROM INTERVENTIONAL RADIOLOGY. PER NATHALIA PROCEDURE HAS BEEN CANCELLED DUE TO PT/INR LEVEL AND RADIOLOGY CLINIC WILL CALL TO RESCHEDULE PROCEDURE. RIGHT AC PIV DC'D WITH TIP INTACT. OFFERED DRINK TO PATIENT, PATIENT DECLINES. 5905 DISCHARGED TO VEHICLE WITH DETENTION STAFF VIA WHEELCHAIR
[2020-06-21 15:38] LABS: BILIRUBIN - DIRECT 0.09 mg/dL (0.00-0.30); BILIRUBIN - INDIRECT 0.18 mg/dL (0.00-1.00); BILIRUBIN - TOTAL 0.27 mg/dL (0.2-1.3); PROTEIN - SERUM 7.2 g/dL (6.4-8.2)
== END 2020-06-21 14:35 | disposition home or self-care (01) ==
LOC: D.SP 11:00 → EDSTATUS 13:30 → D.SP 13:30 → D.RAD 13:30 → D.SP 14:35
PROVIDERS: ATTEND General Practice
DX: M79.662 Pain in left lower leg (principal); I73.9 Peripheral vascular disease, unspecified; I10 Essential (primary) hypertension; N18.6 End stage renal disease; Z99.2 Dependence on renal dialysis; D64.9 Anemia, unspecified; K21.9 Gastro-esophageal reflux disease without esophagitis; E78.5 Hyperlipidemia, unspecified; Z53.9 Procedure and treatment not carried out, unspecified reason

== ENCOUNTER 2020-07-26 10:08 | Day surgery (SDC) | payer MEDICAID ==
[~2020-07-26] VITALS: Ht 157.5 cm; Wt 45.0 kg
--- NOTE | ~2020-07-26 | HEMODYNAMI ---
PATIENT:CHRISTY SHAVER MEDICAL RECORD: [id number] : 62 LOCATION:D.[facility] ADMISSION DATE: 07/26/20 Generatedon:07/26/202014:53 Patient name: CHRISTY SHAVER Patient #: [id number] SSN: DO B: 1960 Date of study: 07/26/2020 Page: Of Hemodynamic Procedure Report Patient Data Patient Demographics Procedure consent was obtained First Name: CHRISTY Gender: Female Last Name: CHHAYA : 1960 Patient #: [id number] Age: 60 year(s) Race: Black Additional ID: [id number] Contact details Address: [address] [place] [address] State: [place] City: [place] Zip code: [address] Past Medical History Allergies Allergen Reaction Date Comments Reported Other allergy 07/26/2020 CAROLYN INHIBITORS, MINOXIL Admission Admission Data Admission Date: 07/26/2020 Admission Time: 10:08 Procedure Procedure Types Cath Procedure Peripheral Cath Diagnostic Procedure Abd/Extremity Extremities Bilat Lower Extremity Procedure Description Procedure Date Procedure Date: 07/26/2020 Procedure Start Time: 14:07 Procedure Staff Name Function Andres Martin MD Performing Physician Holli Lucero RT Engineering Technical Analyst B Geovanny Jeronimo BIOFUELS ENGINEERING MANAGER Additional personnel Radha SLOAN RN Nurse Vida Shankar RN Nurse Raymond Olivarez RT Scrub Procedure Data Cath Procedure Fluoroscopy Diagnostic fluoroscopy Total fluoroscopy Time: 5.3 time: 5.3 min min Diagnostic fluoroscopy Total fluoroscopy dose: 232 dose: 232 mGy mGy Contrast Material Contrast Material Type Amount (ml) Isovue 300 165 Diagnostic catheters Device Type Used For End Catheter Placement Merit Impress KA 2 5Fr 40CM catheter ([id number]) Hemodynamics Rest Pre Cath Intra NCS Post Cath Procedure Log Time Note 12:59:30 Use device set IR Diagnostic 12:59:31 Tegaderm 4 x 4 (1626W) opened to sterile field. 12:59:32 Sterile Angiographic Pack opened to sterile field. 12:59:33 Bag Decanter (2002S) opened to sterile field. 12:59:34 ACIST Manifold (63217) opened to sterile field. 12:59:35 ACIST Hand Control (40512) opened to sterile field. 12:59:36 ACIST Syringe (30760) opened to sterile field. 13:00:23 DUNCAN 260 wire (Y73590) opened to sterile field. 13:00:24 TUBING Contrast Injection High Pressure (PUD624K) opened to sterile field. 13:00:25 SHEATH 5FR [place] (MFY175) opened to sterile field. 13:00:26 Micropuncture VSI 4FR kit opened to sterile field. 13:00:26 DOUBLE ENDED GUIEDWIRE DOC 145CM (Y57469) opened to sterile field. 13:01:09 - 13:01:18 ----Pre-sedation anethsthesia assessment.----SEE ANESTHESIA NOTES FOR MONITORING OF PATIENT DURING PROCEDURE 13:02:20 - 13:02:20 - 13:06:09 Time tracking: Regular hours (M-F 7:00 - 5:00) 13:26:01 Patient received from Outpatients to Alert and oriented. Tansferred to table in Supine position. 13:26:03 Signed procedure consent form obtained from patient. 13:26:09 H&P Date Dictated: 07/26/2020 Within 30 days and on chart.. 13:26:17 H&P Date Dictated: 07/26/2020 H&P Addendum completed by physician on da y of procedure. (MUST COMPLETE FOR ALL OUTPATIENTS). 13:26:22 Pre-procedure instructions explained to patient. 13::23 Pre-op teaching completed and patient verbalized understanding. 13:26:26 Family unavailable. 13:26:29 Patient NPO since Midnight. 13:27:17 Patient allergic to Other allergyACE INHIBITORS, MINOXIL 13:27:25 Is the patient allergic to Iodine/contrast media? No. 13:27:30 Is patient on blood thinner?No 13:27:49 Patient diabetic? No. 13:27:51 - 13:28:01 Right groin area was prepped with chlora-prep and draped in sterile fashion 13:28:08 Alarms reviewed by Anderson Lucas 13:28:27 5) <15 or on dialysis Very severe, or end stage kidney failure. 13:28:42 Fire Safety Assessment: A--An alcohol-based skin anteseptic being used preoperatively. 13:44:07 Pre procedure: right dorsailis pedis pulse Doppler 13:44:11 Pre procedure: right posterior tibial pulse Doppler 13:44:37 Pre procedure: left dorsailis pedis pulse Doppler 13:47:31 Pre procedure: left posterior tibial pulse 0-Absent 13:47:49 - 14:05:37 TORQUE DEVICE PLASTIC .038 ( TD01) opened to sterile field. 14:05:38 GLIDE CATHETER 5FR ANGLED 65cm (CG507) opened to sterile field. 14:05:39 Angiodynamics Omniflush 5Fr 65cm ([id number]) opened to sterile field. 14:05:40 GLIDE WIRE ANGLE 260cm (XD1964) opened to sterile field. 14:05:45 - 14:06:24 Physician arrived 14:06:25 --------ALL STOP TIME OUT------ 14:06:26 Final Timeout: patient, procedure, and site verified with staff and physician. All members of the team are in agreement. 14:07:03 Procedure started. 14:07:03 Full Disclosure recording started 14:07:09 Local anesthetic to right femoral artery with Lidocaine 1% by Andres Martin MD.INITIAL ACCESS ONLY 14:07:11 Arterial access obtained using ultrasound guidance. 14:21:57 AMPLATZ Super Stiff 75cm wire ([id number]) opened to sterile field. 14:23:14 A PeekYou KA 2 5Fr 40CM catheter ([id number]) was advanced over the wire and used for . 14:25:05 AMPLATZ Super stiff 180cm wire ([id number]) opened to sterile field. 14:49:48 EXOSEAL 5Fr (EX500) opened to sterile field. 14:50:24 Procedure ended.(Physican Out) 14:51:28 Fluoroscopy time 05.30 minutes. 14:51:34 Fluoroscopy dose: 232 mGy 14:51:34 Flurop Dose total: 232 14:51:39 Contrast amount:Isovue 300 165ml. 14:52:51 Procedure and supply charges have been captured, reviewed, submitted an d are correct. 14:53:02 Report given to Recovery Room. Device Usage Item Name Manufacture Quantity Catalog Hospital Part Current Minim al Lot# / Number Charge Number Stock Stock Serial# Code Tegaderm 4 x 3M 1 1626W [id number] [id number] 5 4 (1626W) Sterile Cardinal 1 [id number] 632582 384191 5 Angiographic Health Pack Bag Decanter Microtek 1 579027 91521 074386 5 () Medical Inc. ACIST Acist Medical 1 33203 104645 391162 129220 5 Manifold Systems Inc (80609) ACIST Hand [employer] 1 09746 604814 325103 740836 5 Control Systems Inc (61441) ACIST Syringe Acist Medical 1 40848 750100 485704 403325 20 (42233) Systems Inc DUNCAN 260 [facility] 1 E72088 164171 333561 617244 5 wire (L53030) TUBING [facility] 1 [id number] 646620 254348 641621 5 Contrast Injection High Pressure (RVQ208N) SHEATH 5FR Terumo 1 KUP940 759192 441701 939118 5 [place] (MXN781) Micropuncture VSI VASCULAR 1 7266V 789244 859070 5 VSI 4FR kit SOLUTIONS DOUBLE ENDED [employer] 1 S38209 339490 574608 1 GUIEDWIRE DOC 145CM (S02324) TORQUE DEVICE [place] 1 TD01 369544 850374 168377 5 PLASTIC .038 Scientific ( TD01) GLIDE Terumo 1 CG507 784756 095370 5 CATHETER 5FR ANGLED 65cm (CG507) Angiodynamics Angiodynamics 1 [id number] 015936 072022 672648 5 Omniflush 5Fr 65cm (24182192) GLIDE WIRE Terumo 1 MC5343 899312 717046 993578 5 ANGLE 260cm (PU6811) AMPLATZ Super [place] 1 [id number] 883479 860876 210911 5 Stiff 75cm Scientific wire ([id number]) Merit Impress [facility] 1 [id number] 521933 597095 5 KA 2 5Fr 40CM catheter (11325AS5) AMPLATZ Super [place] 1 [id number] 092030 486334 037030 5 stiff 180cm Scientific wire ([id number]) EXOSEAL 5Fr Cardinal 1 EX500 265246 744461 721769 10 [id number] (EX500) Health Signature Audit [place] Stage Time Signature Unsigned Intra-Procedure 07/26/2020 Holli Lucero 2:53:31 PM RT(R) [place] [id number] [place] [address]
[~2020-07-26 10:08] MED LIST changes: +ACETAMINOPHEN325 MG PO; +BAYER CHEWABLE81 MG PO; +CHRONULAC30 ML PO; +CLARITIN 10 MG10 MG PO; +EMLA CREAM 30 G30 G1 TOPICAL; +FAMOTIDINE10 MG PO; +HYDRALAZINE HCL25 MG PO; +LIPITOR20 MG PO; +MULTI-DAY VITAM1 TAB PO; +MYLANTA / MAALO30 ML PO; +NITROQUICK0.4 MG SL; +PAMELOR 25 MG C25 MG PO; +RENVELA800 MG PO
[2020-07-26 11:10] LABS: BASOPHILS 0.5 % (0-2); EOSINOPHILS 1.9 % (0-7); HEMATOCRIT 37.3 % (36.0-48.0); HEMOGLOBIN 11.9 g/dL (12-16); IMMATURE GRANULOCYTES 0.2 % (0-5); LYMPHOCYTES 22.5 % (15-50); MCH 24.5 pg (26.0-34.0); MCHC 31.9 g/dL (31.0-37.0); MCV 76.9 fL (80.0-100.0); MEAN PLATELET VOLUME 10.7 fL (7.4-10.4); MONOCYTES 11.4 % (2-11); NEUTROPHILS 63.5 % (40-80); PLATELET COUNT 199 10x3/uL (130-400); RBC 4.85 10x6/uL (4.00-5.40); RDW 15.9 % (11.5-14.5); WBC 4.1 10x3/uL (4.8-10.8)
[2020-07-26 11:16] LABS: ANION GAP 15.1 mmol/L (8-16); CARBON DIOXIDE 22.5 mmol/L (21.0-32.0); CREATININE - SERUM 6.2 mg/dL (0.6-1.3); POTASSIUM - SERUM 4.6 mmol/L (3.5-5.1)
[2020-07-26 11:20] LABS: APTT 38.5 SECONDS (22.8-39.4); INR 1.5 (0.85-1.17)
[2020-07-26 11:40] VITALS: Ht 157.5 cm; Wt 45.0 kg
--- NOTE | 2020-07-26 18:07 | NUR ---
DISCHARGE INSTRUCTIONS REVIEWED WITH PATIENT AND SKILLED NURSING CAREGIVER. REPORT CALLED TO NURSE AT THE [facility], SPOKE WITH POLY AND INSTRUCTIONS GIVEN PER DR TRENT FOR PATIENT TO TAKE PLAVIX AND ASPIRIN IF THEY WERE NOT GIVEN THIS AM AND FOR PATIENT TO TAKE BLOOD PRESSURE MEDICINES THAT WERE NOT GIVEN THIS MORNING. PATIENT DISCHARGED VIA WHEELCHAIR TO FACILITY VAN WITH CAREGIVER
== END 2020-07-26 18:07 | disposition home or self-care (01) ==
LOC: D.SP 10:08 → D.RAD 13:00 → D.SP 13:00
PROVIDERS: ATTEND General Practice
DX: M79.662 Pain in left lower leg (principal); N18.6 End stage renal disease; I10 Essential (primary) hypertension; K21.9 Gastro-esophageal reflux disease without esophagitis; E78.5 Hyperlipidemia, unspecified; I70.263 Atherosclerosis of native arteries of extremities with gangrene, bilateral legs

== ENCOUNTER → 2021-02-02 09:54 | Outpatient (CLI) | payer MEDICAID ==
[2020-07-26 11:40] VITALS: BMI 18.1
== END | disposition home or self-care (01) ==
LOC: D.CT 09:54
PROVIDERS: ATTEND Thoracic Surgery (Cardiothoracic Vascular Surgery)
DX: I73.9 Peripheral vascular disease, unspecified (principal)

== ENCOUNTER 2021-02-28 06:50 | Day surgery (SDC) | payer MEDICAID ==
[2020-07-26 11:40] VITALS: BMI 18.1
--- NOTE | 2021-02-27 15:06 | NUR ---
CONFIRMED WITH RAMSES @ FACILITY THAT PT WILL BE HERE TOMORROW FOR AORTAGRAM. CONFIRMED NO BLOOD THINNERS AND NPO AFTER MIDNIGHT
[2021-02-28 07:23] LABS: BASOPHILS 1.2 % (0-2); EOSINOPHILS 4.2 % (0-7); HEMATOCRIT 35.7 % (36.0-48.0); HEMOGLOBIN 11.6 g/dL (12-16); LYMPHOCYTES 23.6 % (15-50); MCH 24.5 pg (26.0-34.0); MCHC 32.4 g/dL (31.0-37.0); MCV 75.7 fL (80.0-100.0); MEAN PLATELET VOLUME 8.3 fL (7.4-10.4); MONOCYTES 9.6 % (2-11); NEUTROPHILS 61.4 % (40-80); PLATELET COUNT 225 10x3/uL (130-400); RBC 4.72 10x6/uL (4.00-5.40); RDW 17.3 % (11.5-14.5); WBC 4.7 10x3/uL (4.8-10.8)
[2021-02-28 07:32] LABS: ANION GAP 18.7 mmol/L (8-16); CALCIUM 8.1 mg/dL (8.5-10.1); CARBON DIOXIDE 21.5 mmol/L (21.0-32.0); CREATININE - SERUM 5.7 mg/dL (0.6-1.3); POTASSIUM - SERUM 4.2 mmol/L (3.5-5.1)
[2021-02-28 07:34] LABS: APTT 40.9 SECONDS (22.8-39.4); INR 1.63 (0.85-1.17)
--- NOTE | 2021-02-28 11:40 | NUR ---
1128 DR. TRENT ROUNDS ON PT. EXPLAINED TODAY PROCEDURE WILL BE CANCELLED AND ANOTHER PROCEDURE WILL BE RESCHEDULED SOMETIME IN THE NEAR FUTURE. IV RT. ARM WAS DC'D WITH CATH INTACT AND PT. RELEASED IN HER OWN WC.
== END 2021-02-28 11:35 | disposition home or self-care (01) ==
LOC: D.SP 06:50 → D.RAD 10:00 → D.SP 10:00
PROVIDERS: General Practice; ATTEND Thoracic Surgery (Cardiothoracic Vascular Surgery)
DX: I70.203 Unspecified atherosclerosis of native arteries of extremities, bilateral legs (principal); Z53.9 Procedure and treatment not carried out, unspecified reason